=== PATIENT | female | born 1985 | race Caucasian/White ===

== ENCOUNTER 2019-01-02 13:24 | Outpatient (CLI) | payer OTHER ==
--- NOTE | 2019-01-02 14:53 | ULT ---
EXAM: OB ultrasound COMPARISON: None HISTORY: female patient. Evaluate anatomy and cervical length. TECHNIQUE: Multiplanar grayscale and color Doppler transabdominal sonographic images are obtained. FINDINGS: There is a single intrauterine gestation in cephalic presentation. Cardiac Doppler demonstr ates heart tones with a heart rate of 153 beats per minute. The placenta is located posteriorly without evidence of placenta previa. There is a normal amount of amniotic fluid with an a mniotic fluid index of 16.4centimeters. The cervical length based on transabdominal imaging measures 3.2 centimeters as measured on transabdominal imaging. biometry measurements: BPD 4.92 cm -- 21 weeks HC 18.58 cm -- 21 weeks AC 16.16 cm -- 21 weeks 2 days FL 3.58 cm -- 21 weeks 3 days The estimated gestational age by ultrasound is 21 weeks 2 days with an PRIETO on05/13/2019. Gestational a ge by the last menstrual period is 21 weeks 2 days. The estimated weight by ultrasound is 409 g (14 ounces). This represents 42 percentile for feta l weight. A 4 chambered heart is visualized. The cerebellum, visualized portions of the spine, kidneys, a nd cord insertion demonstrate a normal sonographic appearance. The urinary bladder is decompressed and not well evaluated on this exam. Three-vessel cord is visualized and has a normal sonographic appearance. No anomalies are seen. IMPRESSION: 1. Single intrauterine gestation in cephalic presentation with heart tones documented. Estimat ed gestational age by ultrasound is 21 weeks 2 days. 2. Estimated weight is 409 g (14 ounces). 3. Amniotic fluid index is 16.45 centimeters.
== END 2019-01-02 13:25 | disposition home or self-care (01) ==
LOC: BICULT 13:24
DX: Z34.02 Encounter for supervision of normal first pregnancy, second trimester (principal); Z3A.21 21 weeks gestation of pregnancy
CPT/HCPCS: 76805

== ENCOUNTER 2019-05-06 19:39 | Inpatient (IN) | payer OTHER ==
[~2019-05-06 19:39] MED LIST: Bupivacaine 0.25% HCL 30 ML VIAL ONE
[2019-05-06] MEDS ORDERED: NS / Oxytocin 40 units/1000ml 1,000 ML IV PRN (19:45)
[2019-05-06] MEDS ORDERED: Ibuprofen 800 MG TAB PO PRN (19:45)
[2019-05-06] MEDS ORDERED: Ondansetron PF 4 MG/2 ML Vial IVP PRN (19:45)
[2019-05-06] MEDS ORDERED: Methylergonovine 0.2 MG/ML VIAL IM PRN (19:45)
[2019-05-06] MEDS ORDERED: Promethazine HCl 25 MG/ML VIAL IM PRN (19:45)
[2019-05-06] MEDS ORDERED: NS w/ Oxytocin 10 units 500 ML IV SCH ×2 (19:45)
[2019-05-06] MEDS ORDERED: Misoprostol 200 MCG TAB PR PRN (19:45)
[2019-05-06] MEDS ORDERED: hydrALAZINE 20 MG/ML VIAL SLOW IVP PRN (19:45)
[2019-05-06] MEDS ORDERED: Carboprost 250 MCG/ML AMP IM PRN (19:45)
[2019-05-06] MEDS ORDERED: HYDROcodone/Acetaminophen 5/325 mg Tablet PO PRN (19:45)
[2019-05-06] MEDS ORDERED: Diphenoxylate HCl/Atropine Tablet PO PRN (19:45)
[2019-05-06] MEDS ORDERED: Butorphanol Tartrate 1 MG/ML VIAL SLOW IVP PRN (19:45)
[2019-05-06] MEDS ORDERED: Lidocaine 1% (PF) 30 ML VIAL SC PRN (19:45)
[2019-05-06 20:22] VITALS: BMI 37.8
[2019-05-06] MEDS: Lactated Ringer's 1,000 ML IV SCH (20:43)
[2019-05-06 20:44] LABS: Hemoglobin 12.2 g/dL (12.0-16.0); Mean Corpuscular HGB CONC 35.1 g/dL (32.0-36.0); Mean Corpuscular Hemoglobin 32.4 pg (27.0-31.0); Mean Corpuscular Volume 92.4 fL (78.0-98.0); Platelet Count 307 thou/uL (130-400); RBC Distribution Width 12.1 % (11.5-14.5); Red Blood Cell (RBC) Count 3.77 mill/uL (4.20-5.40); White Blood Cell (WBC) Count 13.4 thou/uL (4.8-10.8)
[2019-05-06] MEDS: Misoprostol 100 MCG TAB PO SCH (20:50)
[2019-05-06 21:26] LABS: Syphilis Antibody Nonreactive (Nonreactive); Syphilis Antibody Index 0.02 S/CO (<1.00 Non-Reactive)
[2019-05-06 23:20] LABS: HBSAg Index 0.21 S/CO (0-0.99); Hep B Surf Ag Non-Reactive S/CO (NonReactive)
[2019-05-07] MEDS: Lactated Ringer's 1,000 ML IV SCH ×5 (05:31→13:45)
[2019-05-07] MEDS ORDERED: Fentanyl 4 mcg/Bup 0.1% Cadd 100 ML ONE ×2 (06:49→14:06)
[2019-05-07] MEDS ORDERED: Bupivacaine 0.25% HCL 30 ML VIAL ONE (07:10)
[2019-05-07] MEDS ORDERED: Fentanyl 100 MCG/2 ML VIAL ONE (08:30)
[2019-05-07] MEDS ORDERED: Lactated Ringer's 500 ML IV PRN (08:42)
[2019-05-07] MEDS ORDERED: Naloxone HCl 0.4 mg/ml Vial IVP PRN ×2 (08:42)
[2019-05-07] MEDS ORDERED: diphenhydrAMINE 50 MG/ML VIAL IVP PRN (08:42)
[2019-05-07] MEDS ORDERED: ePHEDrine/0.9% NaCl/PF SYRINGE 50 mg/10 ml SLOW IVP PRN (08:42)
[2019-05-07] MEDS ORDERED: Acetaminophen 325 MG TAB PO PRN (08:42)
[2019-05-07] MEDS ORDERED: Promethazine HCl 25 MG/ML VIAL IM PRN ×2 (08:42→15:59)
[2019-05-07] MEDS ORDERED: Ondansetron PF 4 MG/2 ML Vial IVP PRN ×2 (08:42→15:59)
[2019-05-07] MEDS ORDERED: Communication Order-Pharmacy FS SCH (08:45)
[2019-05-07] MEDS ORDERED: Fentanyl 4 mcg/Bupivacaine 0.1% Cassette 100 ML EPIDURAL SCH (08:45)
[2019-05-07] MEDS ORDERED: FLU VACC QS2019-20(6MOS UP)/PF 60 MCG/0.5 ML SYRINGE IM ONE (09:00)
[2019-05-07] MEDS ORDERED: Lidocaine 1% (PF) 30 ML VIAL ONE (14:50)
[2019-05-07] MEDS ORDERED: Bisacodyl 10 MG SUPP PR PRN (15:59)
[2019-05-07] MEDS ORDERED: HYDROcodone/Acetaminophen 5/325 mg Tablet PO PRN (15:59)
[2019-05-07] MEDS ORDERED: Milk Of Magnesia 30 ML UDCUP PO PRN (15:59)
[2019-05-07] MEDS ORDERED: NS / Oxytocin 40 units/1000ml 1,000 ML IV SCH (15:59)
[2019-05-07] MEDS ORDERED: Benzocaine-Menthol 82.5 ML CAN TOP PRN (15:59)
[2019-05-07] MEDS ORDERED: hydrALAZINE 20 MG/ML VIAL SLOW IVP PRN (15:59)
[2019-05-07] MEDS ORDERED: diphenhydrAMINE 25 MG CAP PO PRN (15:59)
[2019-05-07] MEDS ORDERED: Adacel (T-DAP) 0.5 ML SYRINGE IM ONE (15:59)
[2019-05-07] MEDS ORDERED: Preparation H Ointment 28 GM TUBE PR PRN (15:59)
[2019-05-07] MEDS ORDERED: Lanolin Ointment 7 GM TUBE TOP PRN (15:59)
[2019-05-07] MEDS: HYDROcodone/Acetaminophen 5/325 mg Tablet PO PRN (16:45)
[2019-05-07] MEDS: Misoprostol 100 MCG TAB PO SCH (16:59)
[2019-05-07] MEDS: Ferrous Sulfate 325 MG TAB PO SCH (18:03)
[2019-05-07] MEDS: Ibuprofen 800 MG TAB PO SCH (19:50)
[2019-05-07] MEDS: Docusate Calcium (SURFAK) 240 MG CAP PO SCH (19:57)
[2019-05-08] MEDS: Ibuprofen 800 MG TAB PO SCH ×3 (05:03→21:12)
[2019-05-08] MEDS: HYDROcodone/Acetaminophen 5/325 mg Tablet PO PRN ×3 (05:03→21:13)
[2019-05-08 07:42] LABS: Hemoglobin 8.6 g/dL (12.0-16.0); Mean Corpuscular Hemoglobin 32.7 pg (27.0-31.0); Mean Corpuscular Volume 96.2 fL (78.0-98.0); Mean Platelet Volume 7.5 fL (7.4-10.4); Platelet Count 219 thou/uL (130-400); RBC Distribution Width 12.2 % (11.5-14.5); Red Blood Cell (RBC) Count 2.63 mill/uL (4.20-5.40); White Blood Cell (WBC) Count 11.6 thou/uL (4.8-10.8)
[2019-05-08] MEDS: Ferrous Sulfate 325 MG TAB PO SCH ×2 (09:33→17:48)
[2019-05-08] MEDS: Docusate Calcium (SURFAK) 240 MG CAP PO SCH ×2 (09:33→21:12)
[2019-05-08] MEDS: Prenatal Vitamin 1 TAB PO SCH (09:33)
[2019-05-09] MEDS: Ibuprofen 800 MG TAB PO SCH ×2 (05:56→14:17)
[2019-05-09] MEDS: HYDROcodone/Acetaminophen 5/325 mg Tablet PO PRN ×3 (05:56→15:55)
[2019-05-09] MEDS: Ferrous Sulfate 325 MG TAB PO SCH ×2 (08:10→17:11)
[2019-05-09] MEDS: Prenatal Vitamin 1 TAB PO SCH (08:10)
[2019-05-09] MEDS: Docusate Calcium (SURFAK) 240 MG CAP PO SCH (08:10)
[2019-05-09 08:30] VITALS: BP 95/57; TEMP 98.4
== END 2019-05-09 19:50 | disposition home or self-care (01) | DRG 807 ==
LOC: L&D 19:39 → 3SW 05-07 17:40
PROVIDERS: ADMIT Family Medicine; ATTEND Family Medicine
PROC: 10D07Z6 Extraction of Products of Conception, Vacuum, Via Natural or Artificial Opening (ICD-10-PCS; principal; 2019-05-07)
PROC: 0W8NXZZ Division of Female Perineum, External Approach (ICD-10-PCS; 2019-05-07)
PROC: 10907ZC Drainage of Amniotic Fluid, Therapeutic from Products of Conception, Via Natural or Artificial Opening (ICD-10-PCS; 2019-05-07)
DX: O66.5 Attempted application of vacuum extractor and forceps (principal); Z37.0 Single live birth; Z3A.39 39 weeks gestation of pregnancy
CPT/HCPCS: 36415; 51702; 85027; 86780; 86850; 86900; 86901; 87340; J2001; J2405; J2590; J3010; S0020